=== PATIENT | female | born 1965 | race Caucasian/White ===

== ENCOUNTER → 2020-09-24 | Outpatient (CLI) | payer MEDICARE, OTHER | LOC: KOH-I 09-18 08:00 | DX: S46.812A Strain of other muscles, fascia and tendons at shoulder and upper arm level, left arm, initial encounter (principal); M67.972 Unspecified disorder of synovium and tendon, left ankle and foot; M72.2 Plantar fascial fibromatosis; X58.XXXA Exposure to other specified factors, initial encounter | CPT/HCPCS: 73718 ==

== ENCOUNTER → 2020-10-29 | Outpatient (CLI) | payer MEDICARE, OTHER | LOC: KOH-I 09:25 | DX: M21.41 Flat foot [pes planus] (acquired), right foot (principal); M19.072 Primary osteoarthritis, left ankle and foot | CPT/HCPCS: 73630 ==